=== PATIENT | female | born 1970 | race Two or more races ===

== ENCOUNTER → 2024-06-09 | Day surgery (SDC) | payer OTHER ==
[2024-06-07 12:37] VITALS: BP 156/88
[~2024-06-09] VITALS: Ht 160 cm; Wt 59.0 kg
[~2024-06-09] MED LIST: ANASTROZOLE1 MG PO; BUPIVACAINE HCL 0.5% 50ML VIAL ONE; BUPIVACAINE HCL/PF 0.25% 30ML VIAL InF ONE; CEFAZOLIN SODIUM 1,000 MG VIAL ONE; CHLORHEXIDINE GLUCONATE 120 ML BOTTLE TOP ONE; CLINDAMYCIN PHOSPHATE 150 MG/ML (900mg) IV ONE; CLINDAMYCIN PHOSPHATE 150 MG/ML (900mg) ONE; CLONAZEPAM0.5 M1 PO; MIRTAZAPINE30 M1 PO; MORPHINE SULFATE 4 MG/ML VIAL IV ONE; POVIDONE-IODINE 118 ML BOTT TOP ONE; POVIDONE-IODINE SCRUB 118 ML BOTT TOP ONE
[2024-06-13 10:04] LABS: hav igm Negative (Negative); hcv Non Reactive (Non Reactive); hep b c Negative (Negative); hep b s ag Negative (Negative)
== END | disposition home or self-care (01) ==
LOC: ADM 06-07 15:00 → CIR.AMB 06:00
PROVIDERS: ATTEND Surgery
DX: D05.11 Intraductal carcinoma in situ of right breast (principal); D05.12 Intraductal carcinoma in situ of left breast; D48.62 Neoplasm of uncertain behavior of left breast; R59.0 Localized enlarged lymph nodes; Z90.13 Acquired absence of bilateral breasts and nipples